=== PATIENT | male | born 1960 | race Caucasian/White ===

== ENCOUNTER 2023-02-04 15:45 | Emergency (ER) | payer BC ==
[2023-02-04] MEDS ORDERED: Ketorolac 30 MG/ML SDV IVPUSH ONE (16:10)
[2023-02-04] MEDS ORDERED: Orphenadrine 60 MG/2 ML Inj IV ONE (16:11)
[2023-02-04] MEDS ORDERED: Lidocaine 5% 700 MG Patch TOP ONE (16:11)
[2023-02-04] MEDS ORDERED: Sodium Chloride 0.9% 10 ML Syringe FLUSH PRN (16:13)
[2023-02-04] MEDS ORDERED: methylPREDNISolone Sodium Succinate 40 MG/1 ML SDV IVPUSH ONE (16:36)
[2023-02-04] MEDS ORDERED: Morphine 2 MG/ML SYRINGE IVPUSH ONE ×2 (16:46→16:57)
[2023-02-04] MEDS ORDERED: HYDROmorphone 2 MG/ML Syringe IVPUSH ONE (17:07)
[2023-02-04] MEDS ORDERED: Lidocaine 5% 700 MG Patch ONE (17:30)
[2023-02-04] MEDS ORDERED: predniSONE 10 MG Tab ONE (17:30)
[2023-02-05] MEDS ORDERED: HYDROmorphone 2 MG/ML Syringe ONE (07:02)
== END 2023-02-04 17:32 | disposition home or self-care (01) ==
LOC: LB.ED 15:45 → UNDOADMOB 02-05 04:00 → LB.MS 02-05 04:00
DX: M54.42 Lumbago with sciatica, left side (principal); Z88.8 Allergy status to other drugs, medicaments and biological substances
CPT/HCPCS: 96374; 96375; 99283; A9270; J1170; J1885; J2270; J2360; J2920; J7512

== ENCOUNTER 2023-02-05 01:43 | Emergency (ER) | payer BC ==
[2023-02-05] MEDS ORDERED: HYDROmorphone 2 MG/ML Syringe IVPUSH ONE ×2 (01:45→02:28)
[2023-02-05] MEDS ORDERED: Sodium Chloride 0.9% 10 ML Syringe FLUSH PRN (01:46)
[2023-02-05] MEDS ORDERED: Ketorolac 30 MG/ML SDV IVPUSH ONE (02:44)
[2023-02-05] MEDS ORDERED: Pregabalin 75 MG Cap PO ONE (03:48)
[2023-02-05] MEDS ORDERED: Ketorolac 30 MG/ML SDV IVPUSH PRN (04:07)
[2023-02-05] MEDS ORDERED: HYDROmorphone 2 MG/ML Syringe IVPUSH PRN (04:12)
[2023-02-05] MEDS ORDERED: Non-Formulary Medication 1 Each (Dulaglutide [Trulicity] 1.5 MG/0.5 ML Pen) SQ SCH (04:15)
[2023-02-05] MEDS ORDERED: Non-Formulary Medication 1 Each (Pantoprazole [Pantoprazole] 20 MG Tab.Dr) PO SCH (08:00)
[2023-02-05] MEDS ORDERED: Non-Formulary Medication 1 Each (Amlodipine [Norvasc] 10 MG Tablet) PO SCH (08:00)
[2023-02-05] MEDS ORDERED: TAMSULOSIN HCL 0.4 MG PO SCH (08:00)
[2023-02-05] MEDS ORDERED: amLODIPine 10 MG Tab PO SCH (08:00)
[2023-02-05] MEDS: predniSONE 20 MG Tab PO SCH (08:24)
[2023-02-05] MEDS: amLODIPine 10 MG Tab**OWN MED PO SCH (08:25)
[2023-02-05] MEDS: Pantoprazole 40 MG Tab.CR PO SCH (08:25)
[2023-02-05] MEDS: Multivitamins with Iron/Calcium/Folic Acid/Minerals Tab PO SCH (08:25)
[2023-02-05] MEDS: metFORMIN 500 MG Tab**OWN MED PO SCH ×2 (08:26→17:01)
[2023-02-05] MEDS: Tamsulosin 0.4 MG Cap.ER**OWN MED PO SCH (08:26)
[2023-02-05] MEDS ORDERED: DULAGLUTIDE 1.5 MG/0.5 ML SQ ONE (10:00)
[2023-02-05] MEDS: Docusate Sodium 100 MG Cap PO SCH (10:39)
[2023-02-05] MEDS: Polyethylene Glycol 3350 Powder 17 GM Packet PO SCH (10:40)
[2023-02-05] MEDS: HYDROmorphone 2 MG/ML Syringe IVPUSH PRN ×7 (10:40→23:22)
[2023-02-05] MEDS: Lidocaine 5% 700 MG Patch TRDERM PRN (17:03)
[2023-02-05] MEDS: Pregabalin 75 MG Cap PO SCH (19:10)
[2023-02-06] MEDS: HYDROmorphone 2 MG/ML Syringe IVPUSH PRN ×8 (01:22→21:38)
[2023-02-06] MEDS: Lidocaine 5% 700 MG Patch TRDERM PRN (05:32)
[2023-02-06] MEDS: Tamsulosin 0.4 MG Cap.ER**OWN MED PO SCH (07:31)
[2023-02-06] MEDS: Docusate Sodium 100 MG Cap PO SCH (07:31)
[2023-02-06] MEDS: predniSONE 20 MG Tab PO SCH (07:31)
[2023-02-06] MEDS: metFORMIN 500 MG Tab**OWN MED PO SCH ×2 (07:32→18:00)
[2023-02-06] MEDS: Polyethylene Glycol 3350 Powder 17 GM Packet PO SCH (07:32)
[2023-02-06] MEDS: Pregabalin 75 MG Cap PO SCH ×2 (07:32→19:57)
[2023-02-06] MEDS: amLODIPine 10 MG Tab**OWN MED PO SCH (07:32)
[2023-02-06] MEDS: Pantoprazole 40 MG Tab.CR PO SCH (07:33)
[2023-02-06] MEDS: Multivitamins with Iron/Calcium/Folic Acid/Minerals Tab PO SCH (07:33)
[2023-02-06] MEDS: Ondansetron 4 MG/2 ML SDV IV PRN (09:55)
[2023-02-06] MEDS: Acetaminophen 500 MG Tab PO PRN (14:28)
[2023-02-07] MEDS: HYDROmorphone 2 MG/ML Syringe IVPUSH PRN ×3 (02:01→07:14)
[2023-02-07] MEDS: Tamsulosin 0.4 MG Cap.ER**OWN MED PO SCH (07:41)
[2023-02-07] MEDS: Pregabalin 75 MG Cap PO SCH ×2 (07:41→19:56)
[2023-02-07] MEDS: metFORMIN 500 MG Tab**OWN MED PO SCH ×2 (07:41→16:45)
[2023-02-07] MEDS: predniSONE 20 MG Tab PO SCH (07:41)
[2023-02-07] MEDS: Docusate Sodium 100 MG Cap PO SCH (07:41)
[2023-02-07] MEDS: Pantoprazole 40 MG Tab.CR PO SCH (07:44)
[2023-02-07] MEDS: Polyethylene Glycol 3350 Powder 17 GM Packet PO SCH (07:44)
[2023-02-07] MEDS: Multivitamins with Iron/Calcium/Folic Acid/Minerals Tab PO SCH (07:44)
[2023-02-07] MEDS: amLODIPine 10 MG Tab**OWN MED PO SCH (07:44)
[2023-02-07] MEDS: Lidocaine 5% 700 MG Patch TRDERM PRN (07:44)
[2023-02-07] MEDS ORDERED: oxyCODONE 5 MG Tab PO ONE (09:30)
[2023-02-07] MEDS ORDERED: oxyCODONE 5 MG Tab ONE (09:31)
[2023-02-07] MEDS ORDERED: Cyclobenzaprine 10 MG Tab PO ONE (10:18)
[2023-02-07] MEDS: Acetaminophen 500 MG Tab PO PRN (10:22)
[2023-02-07] MEDS ORDERED: Cyclobenzaprine 10 MG Tab PO PRN (10:24)
[2023-02-07] MEDS ORDERED: Morphine 2 MG/ML SYRINGE IVPUSH ONE (10:57)
[2023-02-07] MEDS: Ondansetron 4 MG/2 ML SDV IV PRN (11:10)
[2023-02-07] MEDS: Sennosides 8.6 MG Tab PO SCH (11:15)
[2023-02-07] MEDS: oxyCODONE 5 MG Tab PO PRN (16:45)
[2023-02-07] MEDS: Acetaminophen 500 MG Tab PO SCH (17:39)
[2023-02-07] MEDS ORDERED: Acetaminophen 325 MG Tab PO SCH (18:00)
[2023-02-08] MEDS: Acetaminophen 500 MG Tab PO SCH (02:13)
[2023-02-08] MEDS: oxyCODONE 5 MG Tab PO PRN (04:07)
[2023-02-08] MEDS: Multivitamins with Iron/Calcium/Folic Acid/Minerals Tab PO SCH (04:07)
[2023-02-08] MEDS: Sennosides 8.6 MG Tab PO SCH (04:07)
[2023-02-08] MEDS: Docusate Sodium 100 MG Cap PO SCH (04:08)
[2023-02-08] MEDS: Pregabalin 75 MG Cap PO SCH (04:08)
[2023-02-08] MEDS: metFORMIN 500 MG Tab**OWN MED PO SCH (04:08)
[2023-02-08] MEDS: amLODIPine 10 MG Tab**OWN MED PO SCH (04:09)
[2023-02-08] MEDS: Pantoprazole 40 MG Tab.CR PO SCH (04:09)
[2023-02-08] MEDS: Polyethylene Glycol 3350 Powder 17 GM Packet PO SCH (04:10)
[2023-02-08] MEDS: Tamsulosin 0.4 MG Cap.ER**OWN MED PO SCH (04:10)
[2023-02-08] MEDS ORDERED: predniSONE 20 MG Tab PO SCH (07:00)
== END 2023-02-08 04:46 | disposition home or self-care (01) ==
LOC: LB.ED 01:43 → LB.MS 04:00
PROVIDERS: ADMIT Nurse Practitioner Family; ATTEND Nurse Practitioner Family
DX: M51.36 Other intervertebral disc degeneration, lumbar region (principal); M54.42 Lumbago with sciatica, left side; K59.00 Constipation, unspecified; E11.9 Type 2 diabetes mellitus without complications; Z79.84 Long term (current) use of oral hypoglycemic drugs; I10 Essential (primary) hypertension; Z88.8 Allergy status to other drugs, medicaments and biological substances
CPT/HCPCS: 72131; 72192; 82947; 96374; 96375; 96376; 99284-25; A9270-GY; G0378; J1170; J1885; J2270; J2405; J7512